=== PATIENT | male | born 1950 | race Hispanic/Latino ===

== ENCOUNTER 2023-05-27 17:22 | Inpatient (IN) | payer OTHER ==
[~2023-05-27] VITALS: Ht 157.5 cm; Wt 91.5 kg
[2023-05-27 20:04] LABS: BASOPHILS # (AUTO) 0.02 K/uL (0.00-0.20); BASOPHILS % (AUTO) 0.2 % (0.0-5.0); EOSINOPHILS # (AUTO) 0.03 K/uL (0.00-0.70); EOSINOPHILS % (AUTO) 0.3 % (0.0-8.0); HEMATOCRIT 38.7 % (42-54); IMMATURE GRANULOCYTE ABSOLUTE 0.03 K/uL (0-1); LYMPHOCYTES # (AUTO) 0.7 K/uL (1.0-4.8); LYMPHOCYTES % (AUTO) 7.4 % (21.0-51.0); MEAN CORPUSCULAR HEMOGLOBIN 26.8 pg (27.0-33.0); MEAN CORPUSCULAR HGB CONC 32.8 g/dL (32.0-36.0); MEAN CORPUSCULAR VOLUME 81.6 fL (79-99); MONOCYTES # (AUTO) 0.6 K/uL (0.1-1.0); MONOCYTES % (AUTO) 6.5 % (3.0-13.0); NEUTROPHILS # (AUTO) 8.1 K/uL (1.8-7.7); NEUTROPHILS % (AUTO) 85.3 % (40.0-77.0); PLATELET COUNT (AUTO) 193 K/uL (130-400); RED BLOOD CELL COUNT(AUTO) 4.74 MIL/uL (4.50-6.20); RED CELL DISTRIBUTION WIDTH 13.6 % (11.0-15.5); WHITE BLOOD COUNT (AUTO) 9.5 K/uL (4.8-10.8)
[2023-05-27 20:14] LABS: CREATININE 1.3 mg/dL (0.5-1.5); POTASSIUM 3.6 mmol/L (3.5-5.1)
[2023-05-27 20:19] LABS: ALBUMIN 3.4 g/dL (3.5-5.0); BILIRUBIN,TOTAL 0.4 mg/dL (0.2-1.0); TOTAL PROTEIN, SERUM 7.5 g/dL (6.0-8.3)
[2023-05-27 21:03] LABS: SARS-CoV-2, RNA, NAAT NEGATIVE SARS CoV-2 (NEGATIVE)
[2023-05-27 21:08] LABS: INFLUENZA TYPE A Negative For Type A (NEGATIVE)
[2023-05-27 21:24] LABS: INFLUENZA TYPE B Positive For Type B (NEGATIVE)
[2023-05-27] MEDS ORDERED: CEFTRIAXONE 2GM VIAL IVPB ONE (22:30)
[2023-05-27] MEDS ORDERED: KETOROLAC 30MG VIAL (30MG/ML) IVP ONE (22:30)
[2023-05-27] MEDS ORDERED: FAMOTIDINE 20MG VIAL IV ONE (22:30)
[2023-05-27] MEDS ORDERED: GUAIFENESIN 600 MG TABLET.ER PO ONE (22:30)
[2023-05-27] MEDS ORDERED: METOCLOPRAMIDE 10 MG/2 ML VIAL IVP ONE (22:30)
[2023-05-27] MEDS ORDERED: ALBUTEROL 0.083% 2.5 MG/3 ML INH IH ONE (22:30)
[2023-05-27 22:34] VITALS: PULSE 89; PULSE 91; RESP 18; O2SAT 97
[2023-05-27] MEDS ORDERED: IPRATROPIUM/ALBUTEROL SULFATE 3 ML SOLUTION IH ONE (22:52)
[2023-05-27] MEDS ORDERED: GUAIFENESIN-DM 200/20 MG 10 ML PO PRN (23:00)
[2023-05-27] MEDS: IPRATROPIUM/ALBUTEROL SULFATE 3 ML SOLUTION IH SCH (23:00)
[2023-05-27] MEDS ORDERED: ACETAMINOPHEN 325 MG TAB PO PRN ×2 (23:00)
[2023-05-27] MEDS ORDERED: OSELTAMIVIR PHOSPHATE 75 MG CAP PO ONE (23:00)
[2023-05-27] MEDS ORDERED: MORPHINE 2 MG SYG IV PRN ×2 (23:00)
[2023-05-27] MEDS ORDERED: ONDANSETRON 4MG INJ IV PRN (23:00)
[2023-05-27 23:02] VITALS: PULSE 95; RESP 18
[2023-05-27] MEDS: AZITHROMYCIN 500MG+NS 250ML 250 ML IVPB SCH (23:03)
[2023-05-27] MEDS ORDERED: SODIUM CHLORIDE 3% FOR INHALATION 4 ML/AMP VIAL.NEB IH ONE (23:32)
[2023-05-28] VITALS (15 sets, daily range): BP systolic 116–194; BP diastolic 57–85; PULSE 72–97; RESP 17–20; O2SAT 96–99
[2023-05-28 05:04] LABS: BASOPHILS # (AUTO) 0.02 K/uL (0.00-0.20); BASOPHILS % (AUTO) 0.2 % (0.0-5.0); HEMATOCRIT 38.6 % (42-54); IMMATURE GRANULOCYTE ABSOLUTE 0.05 K/uL (0-1); LYMPHOCYTES # (AUTO) 0.9 K/uL (1.0-4.8); LYMPHOCYTES % (AUTO) 9.2 % (21.0-51.0); MEAN CORPUSCULAR HEMOGLOBIN 27.2 pg (27.0-33.0); MEAN CORPUSCULAR HGB CONC 32.6 g/dL (32.0-36.0); MEAN CORPUSCULAR VOLUME 83.2 fL (79-99); MONOCYTES # (AUTO) 0.7 K/uL (0.1-1.0); MONOCYTES % (AUTO) 6.9 % (3.0-13.0); NEUTROPHILS # (AUTO) 8.5 K/uL (1.8-7.7); NEUTROPHILS % (AUTO) 83.2 % (40.0-77.0); PLATELET COUNT (AUTO) 167 K/uL (130-400); RED BLOOD CELL COUNT(AUTO) 4.64 MIL/uL (4.50-6.20); RED CELL DISTRIBUTION WIDTH 13.8 % (11.0-15.5); WHITE BLOOD COUNT (AUTO) 10.3 K/uL (4.8-10.8)
[2023-05-28 05:19] LABS: CREATININE 1.6 mg/dL (0.5-1.5); MAGNESIUM 1.5 mg/dL (1.80-2.40); PHOSPHORUS 4.4 mg/dL (2.5-4.9); POTASSIUM 4.6 mmol/L (3.5-5.1)
[2023-05-28] MEDS: ZOSYN 3.375GM+NS 50ML 50 ML IV SCH ×3 (05:52→21:21)
[2023-05-28] MEDS ORDERED: SODIUM CHLORIDE 3% FOR INHALATION 4 ML/AMP VIAL.NEB IH ONE ×2 (06:03→18:59)
[2023-05-28] MEDS: IPRATROPIUM/ALBUTEROL SULFATE 3 ML SOLUTION IH SCH ×4 (06:50→23:10)
[2023-05-28] MEDS: OSELTAMIVIR PHOSPHATE 75 MG CAP PO SCH ×2 (08:48→21:21)
[2023-05-28] MEDS: FAMOTIDINE 20MG TAB PO SCH (08:48)
[2023-05-28] MEDS: ENOXAPARIN SODIUM 40 MG/0.4 ML SYRINGE SQ SCH (08:49)
[2023-05-28 09:23] LABS: APPEARANCE,URINE CLEAR (CLEAR); BILIRUBIN,URINE NEGATIVE (NEGATIVE); COLOR,URINE YELLOW (YELLOW); GLUCOSE, URINE (UA) NEGATIVE (NEGATIVE); KETONES,URINE 5 mg/dL (NEGATIVE); LEUKOCYTE ESTERASE ,URINE 75 Leu/uL (NEGATIVE); NITRATE,URINE NEGATIVE (NEGATIVE); OCCULT BLOOD,URINE NEGATIVE (NEGATIVE); PROTEIN,URINE 20 mg/dL (NEGATIVE); UROBILINOGEN,URINE 0.2 mg/dL (0.2-1.0)
[2023-05-28 09:28] LABS: ADD UA MICROSCOPIC YES
[2023-05-28 09:30] LABS: BACTERIA,URINE RARE /HPF (None Seen); MUCUS,URINE RARE LPF (None Seen); RBC,URINE 0-1 /HPF (0-1); SQUAMOUS EPITHELIAL CELL,UR RARE /HPF (0-2)
[2023-05-28] MEDS ORDERED: POTASSIUM CHLORIDE 20MEQ/100ML 100 ML IV PRN (11:30)
[2023-05-28] MEDS ORDERED: 0.9% NACL 500ML IV.SOLN 500 ML IV SCH (11:30)
[2023-05-28] MEDS ORDERED: MAGNESIUM 2GM PREMIX 50ML 50 ML IV PRN (11:30)
[2023-05-28] MEDS ORDERED: POTASSIUM CHLORIDE 10% ELIXIR 20 MEQ/15 ML UDCUP PO PRN (11:30)
[2023-05-28] MEDS ORDERED: LACTULOSE 20 GM/30 ML UDCUP PO PRN (11:30)
[2023-05-28] MEDS ORDERED: KCL 20 MEQ ERTAB PO PRN (11:30)
[2023-05-28] MEDS ORDERED: LABETALOL 20MG VIAL IV PRN (12:00)
[2023-05-28] MEDS ORDERED: NITROGLYCERIN 0.4 MG SL TAB SL PRN (12:00)
[2023-05-28] MEDS: METOPROLOL TARTRATE 25 MG TAB PO SCH ×2 (12:10→21:21)
[2023-05-28] MEDS: CLOPIDOGREL 75MG TAB PO SCH (12:11)
[2023-05-28] MEDS: HYDRALAZINE 20MG/ML VIAL IV PRN (12:11)
[2023-05-28 12:54] LABS: ALBUMIN 3.2 g/dL (3.5-5.0); BILIRUBIN,TOTAL 0.6 mg/dL (0.2-1.0); CREATININE 1.6 mg/dL (0.5-1.5); TOTAL PROTEIN, SERUM 7.1 g/dL (6.0-8.3)
[2023-05-28] MEDS: AZITHROMYCIN 500MG+NS 250ML 250 ML IVPB SCH (21:21)
[2023-05-28] MEDS: ATORVASTATIN 40 MG TABLET PO SCH (21:21)
[2023-05-29] VITALS (11 sets, daily range): BP systolic 126–148; BP diastolic 62–76; PULSE 63–80; RESP 18–20; O2SAT 95–98
[2023-05-29] MEDS: ZOSYN 3.375GM+NS 50ML 50 ML IV SCH ×3 (05:32→21:01)
[2023-05-29] MEDS: IPRATROPIUM/ALBUTEROL SULFATE 3 ML SOLUTION IH SCH ×3 (06:29→18:26)
[2023-05-29] MEDS: CLOPIDOGREL 75MG TAB PO SCH (08:27)
[2023-05-29] MEDS: OSELTAMIVIR PHOSPHATE 75 MG CAP PO SCH ×2 (08:28→21:01)
[2023-05-29] MEDS: ENOXAPARIN SODIUM 40 MG/0.4 ML SYRINGE SQ SCH (08:28)
[2023-05-29] MEDS: FAMOTIDINE 20MG TAB PO SCH (08:28)
[2023-05-29] MEDS: METOPROLOL TARTRATE 25 MG TAB PO SCH ×2 (08:28→21:01)
[2023-05-29] MEDS: ASPIRIN 81 MG EC TAB PO SCH (08:28)
[2023-05-29 10:06] LABS: BASOPHILS # (AUTO) 0.02 K/uL (0.00-0.20); BASOPHILS % (AUTO) 0.4 % (0.0-5.0); EOSINOPHILS # (AUTO) 0.19 K/uL (0.00-0.70); EOSINOPHILS % (AUTO) 3.8 % (0.0-8.0); HEMATOCRIT 34.4 % (42-54); IMMATURE GRANULOCYTE ABSOLUTE 0.01 K/uL (0-1); LYMPHOCYTES # (AUTO) 1.1 K/uL (1.0-4.8); LYMPHOCYTES % (AUTO) 21.4 % (21.0-51.0); MEAN CORPUSCULAR HEMOGLOBIN 26.7 pg (27.0-33.0); MEAN CORPUSCULAR HGB CONC 32.8 g/dL (32.0-36.0); MEAN CORPUSCULAR VOLUME 81.3 fL (79-99); MONOCYTES # (AUTO) 0.4 K/uL (0.1-1.0); MONOCYTES % (AUTO) 7.6 % (3.0-13.0); NEUTROPHILS # (AUTO) 3.3 K/uL (1.8-7.7); NEUTROPHILS % (AUTO) 66.6 % (40.0-77.0); PLATELET COUNT (AUTO) 154 K/uL (130-400); RED BLOOD CELL COUNT(AUTO) 4.23 MIL/uL (4.50-6.20); RED CELL DISTRIBUTION WIDTH 14.1 % (11.0-15.5)
[2023-05-29 10:22] LABS: CREATININE 1.2 mg/dL (0.5-1.5); POTASSIUM 3.4 mmol/L (3.5-5.1)
[2023-05-29] MEDS: ATORVASTATIN 40 MG TABLET PO SCH (21:01)
[2023-05-29] MEDS: AZITHROMYCIN 500MG+NS 250ML 250 ML IVPB SCH (21:02)
[2023-05-30] VITALS (8 sets, daily range): BP systolic 133–168; BP diastolic 71–84; PULSE 67–92; RESP 16–18; O2SAT 97–99
[2023-05-30] MEDS: IPRATROPIUM/ALBUTEROL SULFATE 3 ML SOLUTION IH SCH ×3 (00:02→11:24)
[2023-05-30] MEDS: ZOSYN 3.375GM+NS 50ML 50 ML IV SCH (04:21)
[2023-05-30] MEDS: HYDRALAZINE 20MG/ML VIAL IV PRN (04:41)
[2023-05-30 05:08] LABS: BASOPHILS # (AUTO) 0.03 K/uL (0.00-0.20); BASOPHILS % (AUTO) 0.6 % (0.0-5.0); EOSINOPHILS # (AUTO) 0.54 K/uL (0.00-0.70); EOSINOPHILS % (AUTO) 11.1 % (0.0-8.0); HEMATOCRIT 36.3 % (42-54); IMMATURE GRANULOCYTE ABSOLUTE 0.02 K/uL (0-1); LYMPHOCYTES # (AUTO) 1.6 K/uL (1.0-4.8); LYMPHOCYTES % (AUTO) 33.6 % (21.0-51.0); MEAN CORPUSCULAR HGB CONC 32.2 g/dL (32.0-36.0); MEAN CORPUSCULAR VOLUME 83.8 fL (79-99); MONOCYTES # (AUTO) 0.4 K/uL (0.1-1.0); MONOCYTES % (AUTO) 7.6 % (3.0-13.0); NEUTROPHILS # (AUTO) 2.3 K/uL (1.8-7.7); NEUTROPHILS % (AUTO) 46.7 % (40.0-77.0); PLATELET COUNT (AUTO) 179 K/uL (130-400); RED BLOOD CELL COUNT(AUTO) 4.33 MIL/uL (4.50-6.20); RED CELL DISTRIBUTION WIDTH 14.1 % (11.0-15.5); WHITE BLOOD COUNT (AUTO) 4.9 K/uL (4.8-10.8)
[2023-05-30 05:27] LABS: CREATININE 1.2 mg/dL (0.5-1.5)
[2023-05-30] MEDS: CLOPIDOGREL 75MG TAB PO SCH (08:35)
[2023-05-30] MEDS: OSELTAMIVIR PHOSPHATE 75 MG CAP PO SCH (08:35)
[2023-05-30] MEDS: METOPROLOL TARTRATE 25 MG TAB PO SCH (08:36)
[2023-05-30] MEDS: ASPIRIN 81 MG EC TAB PO SCH (08:36)
[2023-05-30] MEDS: FAMOTIDINE 20MG TAB PO SCH (08:36)
[2023-05-30] MEDS: ENOXAPARIN SODIUM 40 MG/0.4 ML SYRINGE SQ SCH (08:42)
[2023-05-30] MEDS ORDERED: AMLO-257 PO (11:48)
[2023-05-30] MEDS ORDERED: AEC81 PO (11:48)
[2023-05-30] MEDS ORDERED: METO25 PO (11:48)
== END 2023-05-30 15:00 | disposition home or self-care (01) | DRG 194 ==
LOC: EDH 17:22 → EDHIP 17:23 → 2DH 05-28 03:34
PROVIDERS: ADMIT Internal Medicine; ATTEND Internal Medicine
DX: J10.00 Influenza due to other identified influenza virus with unspecified type of pneumonia (principal); N17.9 Acute kidney failure, unspecified; I10 Essential (primary) hypertension; Z20.822 Contact with and (suspected) exposure to COVID-19; I25.10 Atherosclerotic heart disease of native coronary artery without angina pectoris; M79.662 Pain in left lower leg; I25.2 Old myocardial infarction; Z59.7 Insufficient social insurance and welfare support; Z75.3 Unavailability and inaccessibility of health-care facilities
CPT/HCPCS: 36415; 71045; 73502; 73562; 78582; 80048; 80053; 81001; 82550; 82948; 83605; 83735; 83880; 84100; 84145; 84484; 85025; 85378; 87040; 87088; 87635; 87804; 93005; 93306; 93970; 94640; 94664; 94667; 94668; A9540; A9558; C9803; G0378; J0360; J0456; J0696; J1650; J1885; J2270; J2543; J2765; J3475; J3490

== ENCOUNTER 2024-07-21 13:43 | Emergency (ER) | payer SELFPAY ==
[~2024-07-21] VITALS: Ht 162.6 cm; Wt 88.0 kg
[~2024-07-21 13:43] MED LIST: AEC81 PO; AMLO-257 PO; METO25 PO
[2024-07-21 13:44] VITALS: BP 116/60; PULSE 84; RESP 16; TEMP 98; O2SAT 94
[2024-07-21] MEDS: ketOROlac 15MG/ML VIAL (15MG/ML) IM ONE (14:15)
[2024-07-21] MEDS ORDERED: IBUP-2076 PO (14:22)
--- NOTE | 2024-07-21 14:23 | ERN ---
General Chief Complaint: Back Pain-No Injury Stated Complaint: BACK PAIN History of Present Illness Initial Comments 73-year-old male with past medical history of diabetes and hypertension came to ER with complaints of bilateral knee pain and left hip pain since 2 weeks., no history of fall or trauma. Distal pulses are good, no tingling or numbness, no swelling or stiffness, describes the pain as 5/10. He uses a cane to walk. No bowel or bladder incontinence. Patient had this problem for a long time and sees his PCP in [place] for it. Denies smoking or alcohol consumption. Allergies: Coded Allergies: No Known Drug Allergies (Unverified Allergy, Unknown, 05/27/23) Home Meds Active Scripts Amlodipine Besylate (Amlodipine Besylate) 5 Mg Tablet, 5 MG PO DAILY for 30 Days, #30 TAB 0 Refills Prov:EUGENIE JONES MD 05/30/23 Metoprolol Tartrate (Lopressor) 25 Mg Tab, 25 MG PO BID, #60 TAB 0 Refills Prov:EUGENIE JONES MD 05/30/23 Aspirin (ASPIRIN 81 MG ECTAB) 81 Mg Ectab, 81 MG PO DAILY, #30 TAB.EC 0 Refills Prov:EUGENIE JONES MD 05/30/23 Past Medical History Past Medical History: Hypertension Past Surgical History: None Social History Social History: Negative ROS Dictation ROS Constitutional: No appetite loss, No fevers, chills , No night sweats, No weakness, fatigue Eye: No vision change, No redness, pain or discharge ENT: No hearing loss, ear pain or discharge, No nose bleeds, No sore throat, Neck: No swelling. pain or stiffness Respiratory: No cough, shortness of breath, wheezing Cardiovascular: No chest pain,, palpitations, dyspnea, No edema Gastrointestinal: No abdominal pain, No nausea, vomiting, No diarrhea, constipation Genitourinary: No painful urination, No blood in urine, No urinary incontinence, No frequency or urgency Musculoskeletal: Bilateral knee pain, left hip pain, no swelling or stiffness Neurological: No numbness, tingling, No weakness, tremors or seizures Psychiatric: : No depression, No anxiety, No sleep disturbance, No Memory changes Lymphatic: No easy bruising, No bleeding tendencies , No swollen lymph nodes Physical Exam Physical Exam Dictation General: Alert & Oriented, No acute distress. EENT: No conjunctival redness or discharge noted Tympanic membranes are clear, Normal hearing, Oral mucosa is moist, No pharyngeal erythema, No nasal dis charge, No oral lesions. Neck: Non-tender, No jugular vein distention, No lymphadenopathy, No thyromegaly, Supple. Respiratory: Lungs are clear to auscultation, Respirations are non-labored, Breath sounds are equal, No chest wall tenderness, _. Cardiovascular: Normal rate, Normal rhythm, No murmur, Good pulses equal in all extremities, Normal peripheral perfusion, No edema. Gastrointestinal: Soft, Non-tender, Non-distended, Normal bowel sounds, No organomegaly, _. Musculoskeletal: Normal range of motion, Normal strength, No tenderness, No swelling, No deformity, Normal gait. Integumentary: Warm, Dry, [place], Intact, No pallor, No rash. Neurologic: Alert, Oriented x4, Normal sensory, No focal defects Psychiatric: Cooperative, Appropriate mood & affect, Normal judgement, Non- suicidal. MDM The differential diagnosis entertained at this time includes: Sciatica, Hip fracture, Muscle strain A full comprehensive workup will be performed to identify the underlying problem. The patient will be monitored closely throughout the emergency department stay. The disposition will depend on the workup results and frequent re-evaluations MDM: 73-year-old male with past medical history of diabetes and hypertension came to ER with complaints of bilateral knee pain and left hip pain since 2 weeks., no history of fall or trauma. Distal pulses are good, no tingling or numbness, no swelling or stiffness, describes the pain as 5/10. No bowel or bladder incontinence. Patient had this problem for a long time and sees his PCP for it. Denies smoking or alcohol consumption Rationale: Tests considered and ordered secondary to shared decision making. Previous outside records reviewed: Old ER visits. Risk of complication and/or morbidity or mortality of patient management: None Medications-Per medication reconciliation Need for hospitalization: Patient does meet criteria for hospitalization. Need for emergency major/minor surgery: No There are no social concerns with this patient. Prescription drug management Prescriptions will include symptomatic care Patient's prior external medical records from other ER visits were reviewed by me as indicated. Prior testing and results from previous visits were reviewed. Prior tests were taken into account with medical decision making and resource utilization, independent historian/historians were used to obtain complete medical history. I independently interpreted the test that were performed, results were reviewed by me and considered findings on radiology if ordered. Medical management and examination interpretation discussions were had by me with other qualified healthcare professionals as indicated for the patient's care. ED Course Vital Signs Date Time Temp Pulse Resp B/P (MAP) Pulse Ox O2 Delivery O2 Flow Rate FiO2 07/21/24 13:44 98.1 84 16 116/60 94 Room Air* 0 21 DX & DISP Disposition: Discharge Departure Impression: Primary Impression: Chronic hip pain Additional Impression: Chronic pain of both knees Critical Time: other Condition: Stable Scripts Ibuprofen (Ibuprofen) 400 Mg Tablet 1 TAB PO Q6HPRN PRN for pain or fever for 5 Days, #20 TAB 0 Refills Prov: PAUL CUEVA MD 07/21/24 Additional Instructions: Patient and the caregiver have been informed of all the diagnostic tests and the imaging conducted during the today's visit to the emergency room and has verbalized understanding of the results I have personally reviewed and interpreted all diagnostic exams performed here in the ER today as well as the vital signs documented by the nursing staff. The patient is now being discharged to home and should follow up with the primary care physician or the specialist as directed by the ER staff. Follow-up with primary care provider in 1 to 2 days. Take medications as di rected here in the emergency room. Okay to continue home medications unless otherwise discussed during your visit in the emergency room today. Return to your nearest emergency room if symptoms worsen or if there is no improvement. Call 911 if you need immediate assistance. Take Tylenol or Motrin [id number] as needed and if no contraindications are present. Increase oral hydration. Referrals: SELF,REFERRAL (PCP) ATTESTATION BY PHYSICIAN I have seen and examined the patient. I reviewed the documentation, medical decision making, and treatment plan as noted by the resident provider above. I agree with the findings and plan of care. Bull Mendoza MD, NIHITHA MD Jul 21, 2024 14:23
--- NOTE | 2024-07-21 14:45 | NUR ---
PT PENDING SONS RETURN FOR D/C, AWARE
--- NOTE | 2024-07-21 15:10 | NUR ---
DAUGHTER OF PT CALLED AND TOLD PT READY FOR D/C, DAUGHTER, AMIRA STATED SHE WILL SEND SON TO [facility]
== END 2024-07-21 15:19 | disposition home or self-care (01) ==
LOC: EDH 13:43
DX: G89.29 Other chronic pain (principal); M25.552 Pain in left hip; M25.561 Pain in right knee; M25.562 Pain in left knee; I10 Essential (primary) hypertension; E11.9 Type 2 diabetes mellitus without complications; Z79.82 Long term (current) use of aspirin; Z79.899 Other long term (current) drug therapy
CPT/HCPCS: 99283; 96372; J1885